=== PATIENT | male | born 1955 | race African-American/Black ===

== ENCOUNTER 2023-06-03 00:12 | Emergency (ER) | payer BC, MEDICAID ==
[~2023-06-03] VITALS: Ht 177.8 cm; Wt 109.0 kg
[2023-06-03 00:39] VITALS: BP 178/105; PULSE 78; RESP 16; TEMP 98.4; O2SAT 99
[2023-06-03 01:26] LABS: BASOPHILS % 0.8 % (0.0-2.0); EOSINOPHILS % 1.1 % (0.0-5.0); HEMATOCRIT. 45.5 % (42.0-52.0); LYMPHOCYTES % 14.4 % (20.0-50.0); MEAN CORPUSCULAR HEMOGLOBIN 21.4 pg (28.0-32.0); MEAN CORPUSCULAR HGB CONC 30.7 g/dL (31.0-37.0); MEAN CORPUSCULAR VOLUME 69.7 fL (80.0-94.0); MEAN PLATELET VOLUME 9.4 fl (7.4-10.4); MONOCYTES % 7.4 % (2.0-8.0); NEUTROPHILS % 76.3 % (40.0-76.0); PLATELET 122 x1000/uL (130-400); RED BLOOD CELL COUNT 6.53 mill/uL (4.7-6.1); RED CELL DISTRIBUTION WIDTH 15.7 % (11.6-14.6)
[2023-06-03 01:27] LABS: ADD RBC MORPHOLOGY YES; DIFFERENTIAL COMMENT 1
[2023-06-03 01:28] LABS: HYPOCHROMASIA 2+; MICROCYTOSIS 3+; PLATELET ESTIMATE SLIGHTLY DECREASED
[2023-06-03 01:30] LABS: CHLORIDE 102 mEq/L (98-107); INDEX HEMOLYSI 1 (1-3); INDEX ICTERIC 1 (1-4); INDEX LIPEMIC 1 (1-3); POTASSIUM 3.8 mEq/L (3.5-5.1); SODIUM 135 mEq/L (136-145)
[2023-06-03 01:42] LABS: ALANINE AMINOTRANSFERASE 34 IU/L (13-61); ALBUMIN 3.6 g/dL (3.4-5.0); ASPARTATE AMINOTRANSFERASE 22 IU/L (15-37); BILIRUBIN TOTAL 0.6 mg/dL (0.1-1.0); CALCIUM 9.3 mg/dL (8.5-10.1); CARBON DIOXIDE 25 mEq/L (21-32); GLUCOSE 273 mg/dL (70-105); PROTEIN TOTAL 8.7 g/dL (6.0-8.3); TROPONIN I HIGH SENSITIVITY 10 ng/L (<78); UREA NITROGEN BLOOD 12 mg/dL (7-21)
== END 2023-06-03 04:29 | disposition left against medical advice (07) ==
LOC: ER 00:12
DX: I49.9 Cardiac arrhythmia, unspecified (principal); Z53.21 Procedure and treatment not carried out due to patient leaving prior to being seen by health care provider
CPT/HCPCS: 36415; 71045; 80053; 84484; 85025; 93005; 99281

== ENCOUNTER 2023-06-05 04:15 | Emergency (ER) | payer BC, MEDICAID | END 2023-06-05 07:00 | disposition home or self-care (01) | LOC: ER 04:15 | DX: Z53.21 Procedure and treatment not carried out due to patient leaving prior to being seen by health care provider (principal) | CPT/HCPCS: 99281 ==

== ENCOUNTER 2024-06-30 17:50 | Inpatient (IN) | payer MEDICARE, MEDICAID ==
[~2024-06-30] VITALS: Ht 185.4 cm; Wt 97.5 kg
[2024-06-30 18:34] LABS: BASOPHILS % 0.9 % (0.0-2.0); EOSINOPHILS % 3.4 % (0.0-5.0); HEMATOCRIT. 37.3 % (42.0-52.0); HEMOGLOBIN. 11.8 g/dL (14.0-18.0); LYMPHOCYTES % 41.7 % (20.0-50.0); MEAN CORPUSCULAR HEMOGLOBIN 21.9 pg (28.0-32.0); MEAN CORPUSCULAR HGB CONC 31.8 g/dL (31.0-37.0); MEAN PLATELET VOLUME 9.6 fl (7.4-10.4); MONOCYTES % 7.5 % (2.0-8.0); NEUTROPHILS % 46.5 % (40.0-76.0); PLATELET 134 x1000/uL (130-400); RED CELL DISTRIBUTION WIDTH 15.8 % (11.6-14.6); WHITE BLOOD COUNT 11.9 x1000/uL (4.5-11.0)
[2024-06-30 18:35] LABS: ADD RBC MORPHOLOGY YES; DIFFERENTIAL COMMENT 1
[2024-06-30 18:41] LABS: CHLORIDE 103 mEq/L (98-107); POTASSIUM 3.4 mEq/L (3.5-5.1); SODIUM 137 mEq/L (136-145)
[2024-06-30 18:42] LABS: CARBON DIOXIDE 23 mEq/L (21-32)
[2024-06-30 18:43] LABS: CALCIUM 9.2 mg/dL (8.7-10.4)
[2024-06-30 18:45] LABS: MICROCYTOSIS 2+
[2024-06-30 18:46] LABS: GIANT PLATELETS FEW; OVALOCYTES 1+; PLATELET ESTIMATE NORMAL
[2024-06-30 18:47] LABS: CREATININE 1.3 mg/dL (0.6-1.3); GLUCOSE 292 mg/dL (70-105); UREA NITROGEN BLOOD 11 mg/dL (9-23)
[2024-06-30 18:48] LABS: INR 0.9; PROTHROMBIN TIME 10.3 sec (9.6-11.0); TROPONIN I HIGH SENSITIVITY 9 ng/L (3.0-53)
[2024-06-30 18:49] LABS: ALANINE AMINOTRANSFERASE 18 IU/L (10-49); ALBUMIN 4.3 g/dL (3.2-4.8); ASPARTATE AMINOTRANSFERASE 17 IU/L (<34)
[2024-06-30 18:50] LABS: BILIRUBIN DIRECT 0.1 mg/dL (<=3.0); BILIRUBIN TOTAL 0.6 mg/dL (0.1-1.0); PROTEIN TOTAL 7.2 g/dL (6.0-8.3)
[2024-06-30] MEDS: ONDANSETRON HCL 4MG/2ML INJ IV STA (19:12)
[2024-06-30] MEDS: SODIUM CHLORIDE 0.9% 1,000 ML IV ONE (19:13)
[2024-06-30] MEDS: ASPIRIN 81MG TABLET PO ONE (21:29)
[2024-06-30] MEDS: MECLIZINE 25MG TABLET PO ONE (21:30)
[2024-06-30] MEDS ORDERED: IPRATROPIUM/ALBUTEROL 0.5-3(2.5)MG/3ML NEB HHN PRN (23:00)
[2024-06-30] MEDS ORDERED: DOCUSATE SODIUM 100MG CAPSULE PO PRN (23:00)
[2024-06-30] MEDS ORDERED: ACETAMINOPHEN 325MG TABLET PO PRN (23:00)
[2024-06-30] MEDS ORDERED: DEXTROSE 50% WATER 50ML SYRINGE IV PRN (23:15)
[2024-06-30] MEDS: IOHEXOL-350 100 ML BOTTLE ONE (23:36)
[2024-07-01 01:59] LABS: CLARITY URINE CLEAR (CLEAR); COLOR URINE YELLOW (YELLOW); GLUCOSE URINE 3+ (NEGATIVE); KETONES URINE TRACE (NEGATIVE); LEUKOCYTE ESTERASE URINE NEGATIVE (NEGATIVE); NITRITE URINE NEGATIVE (NEGATIVE); OCCULT BLOOD URINE NEGATIVE (NEGATIVE); PH URINE 6.5 (4.5-8.0); PROTEIN URINE TRACE (NEGATIVE); SPECIFIC GRAVITY URINE 1.023 (1.005-1.030); UROBILINOGEN URINE 0.2 E.U./dL (0.2-1.0)
[2024-07-01 02:14] LABS: BACTERIA URINE NONE SEEN; RBC URINE NONE SEEN /hpf (0-2); SQUAMOUS EPITHELIAL CELL URINE NONE SEEN /lpf (RARE/1+); WBC URINE NONE SEEN /hpf (0-2)
[2024-07-01 02:17] LABS: *AMPHETAMINES SCREEN URINE NEGATIVE (NEGATIVE); *BARBITURATES SCREEN URINE NEGATIVE (NEGATIVE); *BENZODIAZEPINES SCREEN URINE NEGATIVE (NEGATIVE); *COCAINE SCREEN URINE NEGATIVE (NEGATIVE); CANNABINOID URINE SCREEN NEGATIVE (NEGATIVE); ECSTASY MDMA SCREEN URINE NEGATIVE (NEGATIVE); METHADONE URINE SCREEN NEGATIVE (NEGATIVE); OPIATES URINE SCREEN NEGATIVE (NEGATIVE); PHENCYCLIDINE URINE SCREEN NEGATIVE (NEGATIVE)
[2024-07-01] MEDS: DEXT 5%/0.45% NACL 1000ML 1,000 ML IV SCH (02:20)
[2024-07-01] MEDS: KCL 20MEQ/100ML PREMIX 100 ML IV SCH (02:20)
[2024-07-01] MEDS: CLOPIDOGREL 75MG TABLET PO NR (02:20)
[2024-07-01] MEDS: HYDRALAZINE 20MG/ML VIAL IV PRN (03:25)
[2024-07-01 03:36] LABS: PROTHROMBIN TIME 10.7 sec (9.6-11.0)
[2024-07-01 03:41] LABS: IRON 62 ug/dL (65-175)
[2024-07-01 03:42] LABS: TRIGLYCERIDE 144 mg/dL (0-150)
[2024-07-01 03:43] LABS: LDL CHOLESTEROL 149 mg/dL (5-100)
[2024-07-01 03:44] LABS: CHOLESTEROL 235 mg/dL (<200); HDL CHOLESTEROL 44 mg/dL (>55); LACTIC ACID 3.4 mmol/L (0.4-2.0); PHOSPHORUS 3.1 mg/dL (2.5-4.9); TOTAL IRON BINDING CAPACITY 277 ug/dl (250-425)
[2024-07-01 03:48] LABS: FERRITIN 94 ng/mL (22-322); FOLIC ACID (FOLATE) SERUM 19.33 ng/mL (>5.38); VITAMIN B12 SERUM 648 pg/mL (211-911)
[2024-07-01 05:02] LABS: BETA HYDROXYBUTYRATE 0.1 mMol/L (0.0-0.3)
[2024-07-01 06:03] LABS: CHLORIDE 104 mEq/L (98-107); POTASSIUM 4.6 mEq/L (3.5-5.1); SODIUM 135 mEq/L (136-145)
[2024-07-01 06:04] LABS: CARBON DIOXIDE 23 mEq/L (21-32)
[2024-07-01 06:07] LABS: BASOPHILS % 0.6 % (0.0-2.0); EOSINOPHILS % 0.3 % (0.0-5.0); HEMATOCRIT. 37.4 % (42.0-52.0); LYMPHOCYTES % 14.5 % (20.0-50.0); MEAN CORPUSCULAR HEMOGLOBIN 21.9 pg (28.0-32.0); MEAN CORPUSCULAR VOLUME 68.3 fL (80.0-94.0); MEAN PLATELET VOLUME 9.5 fl (7.4-10.4); MONOCYTES % 6.2 % (2.0-8.0); NEUTROPHILS % 78.4 % (40.0-76.0); PLATELET 123 x1000/uL (130-400); RED BLOOD CELL COUNT 5.47 mill/uL (4.7-6.1); RED CELL DISTRIBUTION WIDTH 15.5 % (11.6-14.6); WHITE BLOOD COUNT 12.2 x1000/uL (4.5-11.0)
[2024-07-01 06:09] LABS: CREATININE 1.1 mg/dL (0.6-1.3); GLUCOSE 280 mg/dL (70-105); TRIGLYCERIDE 139 mg/dL (0-150); UREA NITROGEN BLOOD 11 mg/dL (9-23)
[2024-07-01 06:10] LABS: DIFFERENTIAL COMMENT 1; LDL CHOLESTEROL 134 mg/dL (5-100)
[2024-07-01 06:11] LABS: ALBUMIN 4.2 g/dL (3.2-4.8); CHOLESTEROL 208 mg/dL (<200); HDL CHOLESTEROL 40 mg/dL (>55)
[2024-07-01 06:14] LABS: T4 FREE 1.24 ng/dL (0.89-1.76); THYROID STIMULATING HORMONE 1.11 uIU/mL (0.55-4.78)
[2024-07-01] MEDS ORDERED: DEXTROSE 50% WATER 50ML SYRINGE IV PRN (07:00)
[2024-07-01] MEDS: INSULIN LISPRO 100 UNITS/ML SUBCUT SCH (08:41)
[2024-07-01] MEDS ORDERED: BLOOD SUGAR DIAGNOSTIC STRIP TEST SCH (09:00)
[2024-07-01] MEDS ORDERED: ASPIRIN 81MG EC TABLET PO SCH (09:00)
[2024-07-01] MEDS: TAMSULOSIN HCL 0.4MG SR CAPSULE PO SCH (09:37)
[2024-07-01] MEDS: ASPIRIN 81MG TABLET PO SCH (09:37)
[2024-07-01] MEDS: BLOOD SUGAR DIAGNOSTIC STRIP TEST SCH (09:37)
[2024-07-01] MEDS: IPRATROPIUM/ALBUTEROL 0.5-3(2.5)MG/3ML NEB HHN SCH (09:50)
[2024-07-01 09:53] VITALS: PULSE 89; RESP 16; O2SAT 96
[2024-07-01] MEDS: INSULIN GLARGINE 100 UNITS/ML SUBCUT SCH (10:16)
[2024-07-01 15:33] VITALS: PULSE 94; RESP 16; O2SAT 98
[2024-07-01] MEDS: FAMOTIDINE 20MG TABLET PO SCH (21:00)
[2024-07-01] MEDS: CLONIDINE 0.1MG TABLET PO NR (21:43)
[2024-07-01] MEDS: ATORVASTATIN CALCIUM 40MG TABLET PO SCH (22:21)
[2024-07-02 00:45] VITALS: BP_SYST 195; BP_DIAS 102; BP_DIAS 106; PULSE 104; PULSE 89; RESP 12; RESP 19; TEMP 37.00296; TEMP 37.0296; O2SAT 97
[2024-07-02 02:00] VITALS: BP 157/89; PULSE 81; RESP 12; O2SAT 95
[2024-07-02 04:00] VITALS: BP 184/103; PULSE 89; RESP 12; TEMP 36.83628; O2SAT 97
[2024-07-02 06:00] VITALS: BP 157/95; PULSE 84; RESP 14; O2SAT 94
[2024-07-02 06:59] LABS: CARBON DIOXIDE 26 mEq/L (21-32); CHLORIDE 103 mEq/L (98-107); SODIUM 137 mEq/L (136-145)
[2024-07-02 07:01] LABS: CALCIUM 9.3 mg/dL (8.7-10.4)
[2024-07-02 07:05] LABS: GLUCOSE 207 mg/dL (70-105)
[2024-07-02 07:06] LABS: UREA NITROGEN BLOOD 9 mg/dL (9-23)
[2024-07-02 07:15] LABS: HEMATOCRIT 38.8 % (42.0-52.0); HEMOGLOBIN 12.6 g/dL (14.0-18.0); MEAN CORPUSCULAR HEMOGLOBIN 22.4 pg (28.0-32.0); MEAN CORPUSCULAR HGB CONC 32.4 g/dL (31.0-37.0); PLATELET 120 x1000/uL (130-400); RED BLOOD CELL COUNT 5.61 mill/uL (4.7-6.1); RED CELL DISTRIBUTION WIDTH 15.8 % (11.6-14.6); WHITE BLOOD COUNT 9.9 x1000/uL (4.5-11.0)
[2024-07-02 07:49] VITALS: BP 131/97; PULSE 96; TEMP 98.3; O2SAT 95
[2024-07-02] MEDS ORDERED: CLOPIDOGREL 75MG TABLET PO SCH (09:00)
== END 2024-07-02 11:25 | disposition short-term general hospital (02) | DRG 66 ==
LOC: ER 17:50 → EDBEDREQ 21:24 → EDBEDREQTM 21:24 → EDBEDREQSVC 07-01 03:11 → 5EST 07-02 00:50
PROVIDERS: ADMIT Internal Medicine; ATTEND Internal Medicine
DX: I63.9 Cerebral infarction, unspecified (principal); I65.1 Occlusion and stenosis of basilar artery; E78.5 Hyperlipidemia, unspecified; F17.200 Nicotine dependence, unspecified, uncomplicated; I25.10 Atherosclerotic heart disease of native coronary artery without angina pectoris; J44.9 Chronic obstructive pulmonary disease, unspecified; N40.0 Benign prostatic hyperplasia without lower urinary tract symptoms; Z20.822 Contact with and (suspected) exposure to COVID-19; I10 Essential (primary) hypertension; D64.9 Anemia, unspecified; E11.65 Type 2 diabetes mellitus with hyperglycemia; I67.2 Cerebral atherosclerosis; E87.6 Hypokalemia; Z79.02 Long term (current) use of antithrombotics/antiplatelets; Z79.4 Long term (current) use of insulin; Z79.82 Long term (current) use of aspirin; Z79.899 Other long term (current) drug therapy; Z95.1 Presence of aortocoronary bypass graft; I65.01 Occlusion and stenosis of right vertebral artery; I66.01 Occlusion and stenosis of right middle cerebral artery; R29.713 NIHSS score 13
CPT/HCPCS: 36415; 70496; 71045; 80048; 80076; 80305; 81003; 84484; 85025; 85027; 93005; 93970; J0360; J1815; J2405; J3480; J7030; J8597; Q9967